=== PATIENT | male | born 1980 | race Caucasian/White ===

== ENCOUNTER 2023-09-06 19:23 | Emergency (ER) | payer SELFPAY ==
[2023-09-06] MEDS ORDERED: CEPHALEXIN500 M1 PO (21:05)
[2023-09-06 22:50] VITALS: BP 127/87; PULSE 82; TEMP 98.5
== END 2023-09-06 22:50 | disposition home or self-care (01) ==
LOC: COL.ER 19:23
DX: S61.211A Laceration without foreign body of left index finger without damage to nail, initial encounter (principal); W26.0XXA Contact with knife, initial encounter; Y92.009 Unspecified place in unspecified non-institutional (private) residence as the place of occurrence of the external cause; Y93.G1 Activity, food preparation and clean up